=== PATIENT | female | born 2000 | race Caucasian/White ===

== ENCOUNTER 2022-01-24 03:27 | Emergency (ER) | payer MEDICAID ==
[~2022-01-24] VITALS: Ht 160 cm; Wt 59.0 kg
[2022-01-24] MEDS ORDERED: IBUPROFEN 600MG TABLET PO ONE (06:15)
[2022-01-24 06:26] VITALS: BP 118/78
[2022-01-24 08:00] LABS: CLARITY URINE CLEAR (CLEAR); COLOR URINE YELLOW (YELLOW); KETONES URINE 2+ (NEGATIVE); LEUKOCYTE ESTERASE URINE 1+ (NEGATIVE); NITRITE URINE NEGATIVE (NEGATIVE); OCCULT BLOOD URINE 3+ (NEGATIVE); PROTEIN URINE 1+ (NEGATIVE); SPECIFIC GRAVITY URINE 1.012 (1.005-1.030); UROBILINOGEN URINE 0.2 E.U./dL (0.2-1.0)
[2022-01-24] MEDS ORDERED: TOPUD PO (08:11)
[2022-01-24] MEDS ORDERED: NITR100C PO (08:11)
== END 2022-01-24 08:34 | disposition home or self-care (01) ==
LOC: ER 03:27
DX: N39.0 Urinary tract infection, site not specified (principal)
CPT/HCPCS: 81003; 81025; 87077; 87186; 99283